=== PATIENT | male | born 1980 | race African-American/Black ===

== ENCOUNTER 2024-02-17 12:35 | Emergency (ER) | payer MEDICAID, SELFPAY ==
[2024-02-17 12:42] VITALS: BP 158/94; PULSE 79; TEMP 36.7; O2SAT 94; BMI 21.5
--- NOTE | 2024-02-17 12:48 | XR_ITS ---
The [address] [address] Patient Name: FIGUEROA TOBIN MRN: [id number] date: 1980 Sex: M Assigned Patient Location: ER Current Patient Location: ER Accession/Order Number: [id number] Exam Date: 02/17/2024 12:55 Report Date: 02/17/2024 13:41 At the request of: JULIO VASQUEZ Procedure: XR wrist RT min 3V PROCEDURE: XR wrist RT min 3V COMPARISON: None. HISTORY: Fall, pain FINDINGS: BONES:No fracture, acute abnormality, or significant arthropathy. SOFT TISSUES:Negative. No visible soft tissue swelling. EFFUSION:None visible. OTHER: Negative. XR/XR wrist RT min 3V IMPRESSION: No acute abnormality Electronically authenticated by: EUGENIA SANDOVAL Date: 02/17/2024 13:41
--- NOTE | 2024-02-17 12:49 | ED_ITS ---
HPI - Extremity Injury (Upper) General Chief Complaint: Extremity Injury, Upper Stated Complaint: UPPER EXTREMITY INJURY Time Seen by Provider: 02/17/24 12:41 Source: patient Mode of arrival: walk-in Limitations: no limitations History of Present Illness HPI narrative: 43-year-old male presents for right wrist pain. He has chronic foot drop and he tripped and he fell and he landed on his outstretched hand. He also sustained an abrasion on the left side of his face, below the eye. That does not hurt. No neck pain or loss of consciousness. No other injury sustained. The pain is moderate and it happened today. Related Data Allergies Allergy/AdvReac Type Severity Reaction Status Date / Time bee venom protein (honey bee) Allergy Severe Hives Verified 02/17/24 12:45 Review of Systems ROS Narrative A ten point review of systems is negative except as noted above. Exam Narrative Exam Narrative: Nurses note and vital signs reviewed and patient is not hypoxic. General: The patient appears well and in no apparent distress. Patient is resting comfortably on cart. Skin: Warm, dry, no pallor noted. There is no rash noted. Head: Normocephalic, small abrasion just below his left eye. No bony tenderness. Eye: Normal conjunctiva, no drainage, EOMI. PERRL Ears, Nose, Mouth, and Throat: oral mucosa is moist. Nares patent. Mouth without vesicles. Ear canals patent. Tm's without Erythema Cardiovascular: Regular Rate and Rhythm Respiratory: Patient is in no distress, no accessory muscle use, lungs are clear to auscultation, no wheezing, rales or rhonchi Back: non-tender GI: Soft and nontender Musculoskeletal: Tenderness and some swelling present on the dorsum of his right wrist. Skin intact. Fingers have good range of motion. Neurological: A&O, normal speech Psychiatric: Cooperative Constitutional Vital Signs, click to edit/add: Last Vital Signs Temp 98.1 F 02/17/24 12:42 Pulse 79 02/17/24 12:42 Resp 20 02/17/24 12:42 BP 158/94 H 02/17/24 12:42 Pulse Ox 94 L 02/17/24 12:42 O2 Del Method Room Air 02/17/24 12:42 Course Vital Signs Vital signs: Vital Signs Temperature 98.1 F 02/17/24 12:42 Pulse Rate 79 02/17/24 12:42 Respiratory Rate 20 02/17/24 12:42 Blood Pressure 158/94 H 02/17/24 12:42 Pulse Oximetry 94 L 02/17/24 12:42 Oxygen Delivery Method Room Air 02/17/24 12:42 Temperature 98.1 F 02/17/24 12:42 Pulse Rate 79 02/17/24 12:42 Respiratory Rate 20 02/17/24 12:42 Blood Pressure 158/94 H 02/17/24 12:42 Pulse Oximetry 94 L 02/17/24 12:42 Oxygen Delivery Method Room Air 02/17/24 12:42 MDM - Extremity Injury (Upper) MDM Narrative Medical decision making narrative: X-rays are negative per radiologist. My clinical impression is that he has a sprain. Wrist splint ordered. Application checked by me and found the appropriate time he is neurovascularly intact. Treatment diagnosis and follow- up were discussed with the patient. Differential Diagnosis Differential diagnosis: Likely sprain and strain of wrist and fracture of wrist Imaging Data Wrist x-ray: Radiologist's impression: ITS Impressions Wrist X-Ray 02/17/24 12:48 IMPRESSION: No acute abnormality Electronically authenticated by: EUGENIA SANDOVAL Date: 02/17/2024 13:41 Discharge Plan Discharge Stand Alone Forms: Portal Instructions Chief Complaint: Extremity Injury, Upper Clinical Impression: Right wrist sprain Patient Disposition: Home, Self-Care Time of Disposition Decision: 13:52 Condition: Good Mode of Transportation: Private Vehicle Print Language: Prydeinig Instructions: Wrist Sprain (ED) Referrals: YULI PITTMAN [Primary Care Provider] - 1 week
== END 2024-02-17 14:05 | disposition home or self-care (01) ==
PROVIDERS: Emergency Provider Emergency Medicine; PCP Physician Assistant Medical
DX: S63.501A Unspecified sprain of right wrist, initial encounter (principal); W01.0XXA Fall on same level from slipping, tripping and stumbling without subsequent striking against object, initial encounter; M21.379 Foot drop, unspecified foot
CPT/HCPCS: 73110; 99283

== ENCOUNTER 2024-04-10 16:48 | Emergency (ER) | payer MEDICAID, SELFPAY ==
[2024-04-10 17:08] VITALS: BP 115/90; PULSE 67; TEMP 37.1; O2SAT 100; BMI 20.8
--- NOTE | 2024-04-10 17:20 | CT_ITS ---
The [address] [address] Patient Name: FIGUEROA TOBIN MRN: [id number] date: 1980 Sex: M Assigned Patient Location: ER Current Patient Location: ED.MAIN Accession/Order Number: [id number] Exam Date: 04/10/2024 17:45 Report Date: 04/10/2024 18:53 At the request of: KELLY LAM Procedure: CT abdomen pelvis wo con CT ABDOMEN/PELVIS WITHOUT IV CONTRAST. INDICATION: Right flank pain COMPARISON: There are no other studies available for comparison. TECHNIQUE: Contiguous axial images were obtained from the lung bases to the pelvic floor without intravenous or oral contrast. Coronal and sagittal reformations are provided. FINDINGS: LOWER LUNGS: Clear. LIVER/BILIARY TREE: No discrete lesion. No intrahepatic ductal dilatation. GALLBLADDER: No significant gallbladder wall thickening. No radiopaque stone. CBD: Normal CBD. SPLEEN: Normal in size. PANCREAS: No appreciable peripancreatic fluid. No pancreatic ductal dilatation. No discrete lesion. ADRENALS: Normal. KIDNEYS: No hydronephrosis. No radiopaque calculus. STOMACH AND BOWEL: Stomach is unremarkable. No dilated bowel loops. No bowel wall thickening. APPENDIX: Visualized portions appear unremarkable. PERITONEAL CAVITY: No fluid. No fat stranding. ABDOMINAL WALL: No subcutaneous stranding. No subcutaneous fluid collection. LYMPH NODES: No mesenteric or retroperitoneal lymphadenopathy by CT criteria. ABDOMINAL AORTA: No aneurysm. PELVIS: No acute abnormality. MUSCULOSKELETAL: No acute osseous abnormality. CT/CT abdomen pelvis wo con IMPRESSION: No acute abnormality in the abdomen or pelvis. No obstructive uropathy. No nephrolithiasis. Electronically authenticated by: KAREN COURTNEY Date: 04/10/2024 18:53
[2024-04-10 17:45] LABS: Basophils Percent Auto 0.5 % (0.2-2.0); Eosinophils Absolute Auto 0.3 10^3/uL (0.0-0.7); Eosinophils Percent Auto 3.6 % (0.9-7.0); Hematocrit 45.7 % (42.0-54.0); Hemoglobin 14.7 g/dL (14.0-18.0); Immature Granulocytes Abs Auto 0.01 10^3/uL (0.00-0.03); Immature Granulocytes Pct Auto 0.1 % (0.0-0.5); Lymphocytes Percent Auto 45.4 % (20.5-60.0); Mean Corpuscular HGB Conc 32.2 g/dL (29.9-35.2); Mean Corpuscular Hemoglobin 25.7 pg (25.9-34.0); Mean Corpuscular Volume 79.9 fL (80.0-94.0); Mean Platelet Volume 10.5 fL (9.5-13.5); Monocytes Absolute Auto 0.7 10^3/uL (0.3-0.8); Monocytes Percent Auto 7.9 % (1.7-12.0); Neutrophils Absolute Auto 3.7 10^3/uL (1.4-6.5); Neutrophils Percent Auto 42.5 % (43.0-75.0); Platelet Count 204 10^3/uL (150-450); Red Blood Count 5.72 10^6/uL (4.70-6.10); Red Cell Distribution Width 14.9 % (11.0-15.0); White Blood Count 8.7 10^3/uL (4.0-11.0)
[2024-04-10 17:46] LABS: Bilirubin Urine NEGATIVE (NEGATIVE); Blood Urine NEGATIVE (NEGATIVE); Clarity Urine CLEAR (CLEAR); Color Urine YELLOW (YELLOW); Glucose Urine UA NEGATIVE (NEGATIVE); Ketones Urine NEGATIVE (NEGATIVE); Leukocyte Esterase Urine NEGATIVE (NEGATIVE); Nitrite Urine NEGATIVE (NEGATIVE); Protein Urine TRACE mg/dL (NEG/TRACE); Specific Gravity Urine >=1.030 (1.005-1.025); Urobilinogen Urine 0.2 EU/dL (0.2-1.0)
[2024-04-10 17:56] LABS: Urine Microscopic Indicated NO
[2024-04-10 18:06] LABS: Alanine Aminotransferase 22 U/L (16-63); Albumin Globulin Ratio 0.9; Albumin Level 3.1 g/dL (3.4-5.0); Alkaline Phosphatase 72 U/L (46-116); Anion Gap 12.3; Aspartate Amino Transferase 19 U/L (15-37); BUN Creatinine Ratio 9.2; Bilirubin Total 0.2 mg/dL (0.2-1.0); Calcium 8.6 mg/dL (8.5-10.1); Carbon Dioxide 27.7 mmol/L (21.0-32.0); Chloride 105 mmol/L (98-107); Estimated GFR (African America >60 (>=60); Estimated GFR (Non-African Ame >60 (>=60); Globulin 3.4 g/dL; Glucose 97 mg/dL (74-106); Sodium 141 mmol/L (136-145); Total Protein 6.5 g/dL (6.4-8.2)
[2024-04-10 18:09] LABS: Lactate/Lactic Acid 1.1 mmol/L (0.4-2.0)
[2024-04-10] MEDS: 0.9 % SODIUM CHLORIDE 1,000 ML 1000 ML IV (18:10)
--- NOTE | 2024-04-10 18:11 | ED.GENADUL1 ---
HPI HPI - General Adult General Chief complaint: Abdominal Pain Stated complaint: FLANK PAIN LEFT SIDE ARM PAIN Time Seen by Provider: 04/10/24 17:20 Source: patient Mode of arrival: walk-in History of Present Illness HPI narrative: Patient is a 43-year-old male who presents to the emergency department for right flank pain that began in the last several days. He states the pain is in the right flank, reproducible with movement and touch. He states at the time the pain began he did feel discomfort in the right leg. He has a history of MS with chronic right leg weakness and right foot drop that is not new or different today. He has not had any urinary symptoms. No fevers or vomiting. No medications taken prior to arrival today although he has been using [id number] medications for pain without improvement in the last several days. Related Data Previous Rx's ?Medication ?Instructions ?Recorded hydrocodone 5 mg-acetaminophen 325 1 tab PO Q6H PRN pain 2 days #8 04/10/24 mg tablet tabs ketorolac 10 mg tablet 10 mg PO TID PRN pain #10 tabs 04/10/24 methocarbamol 750 mg tablet 750 mg PO TID PRN pain #20 tabs 04/10/24 Allergies Allergy/AdvReac Type Severity Reaction Status Date / Time bee venom protein (honey bee) Allergy Severe Hives Verified 02/17/24 12:45 Opioid HPI Opioid Management Most Recent Opioid Data: Last ED Pain Assessment 04/10/24 18:21 Review of Systems ROS Constitutional Denies: fever or chills Ears, nose, mouth, and throat Denies: throat pain or nasal congestion Cardiovascular Denies: chest pain Respiratory Denies: shortness of breath or cough Gastrointestinal Denies: abdominal pain, nausea, vomiting or diarrhea Genitourinary Denies: painful urination Musculoskeletal Reports: back pain; Denies: neck pain or extremity pain Integumentary/Breast Denies: rash Neurological Denies: headache Hematologic/Lymphatic Denies: easy bruising or easy bleeding Exam Narrative Exam Narrative: Gen.: Awake, alert, in no distress Head: Normocephalic, atraumatic ENT: Moist mucous membranes Respiratory: No respiratory distress, lungs clear bilaterally Cardio: Regular rate and rhythm Gastrointestinal: Abdomen is soft, nondistended and nontender to palpation Back: Diffuse tenderness of the right flank and paraspinal muscles of the right lumbar spine with no midline posterior bony tenderness of the midline spine. No obvious deformity. Extremities: Weakness and right foot drop of the right lower extremity, chronic Psych: Normal mood and affect Neuro: No focal neuro deficit Skin: Warm, dry, intact Constitutional Vital Signs, click to edit/add: Last Vital Signs Temp 98.7 F 04/10/24 17:08 Pulse 67 04/10/24 17:08 Resp 20 04/10/24 17:08 BP 115/90 04/10/24 17:08 Pulse Ox 100 04/10/24 17:08 O2 Del Method Room Air 04/10/24 17:08 Course Vital Signs Vital signs: Vital Signs Temperature 98.7 F 04/10/24 17:08 Pulse Rate 67 04/10/24 17:08 Respiratory Rate 04/10/24 17:08 Blood Pressure 115/90 04/10/24 17:08 Pulse Oximetry 100 04/10/24 17:08 Oxygen Delivery Method Room Air 04/10/24 17:08 Temperature 98.7 F 04/10/24 17:08 Pulse Rate 67 04/10/24 17:08 Respiratory Rate 04/10/24 17:08 Blood Pressure 115/90 04/10/24 17:08 Pulse Oximetry 100 04/10/24 17:08 Oxygen Delivery Method Room Air 04/10/24 17:08 Medical Decision Making MDM Narrative Medical decision making narrative: Patient was treated with IV fluids, Dilaudid, Toradol, Norflex, Zofran. Lab studies including urine specimen are within normal limits. Patient's exam is consistent with musculoskeletal low back pain and CT scan shows no evidence of acute process. Patient is discharged home with short course of analgesics, muscle relaxants and NSAIDs. Follow-up with PCP and return to the ER if symptoms change or worsen. Medical Records Medical records reviewed: Yes I reviewed the patient's medical records Lab Data Lab results reviewed: Yes I reviewed the patient's lab results Labs: Lab Results 04/10/24 04/10/24 Range/Units 17:15 17:30 WBC 8.7 (4.0-11.0) 10^3/uL RBC 5.72 (4.70-6.10) 10^6/uL Hgb 14.7 (14.0-18.0) g/dL Hct 45.7 (42.0-54.0) % MCV 79.9 L (80.0-94.0) fL MCH 25.7 L (25.9-34.0) pg MCHC 32.2 (29.9-35.2) g/dL RDW 14.9 (11.0-15.0) % Plt Count 204 (150-450) 10^3/uL MPV 10.5 (9.5-13.5) fL Neut % (Auto) 42.5 L (43.0-75.0) % Lymph % (Auto) 45.4 (20.5-60.0) % [place] % (Auto) 7.9 (1.7-12.0) % Eos % (Auto) 3.6 (0.9-7.0) % Baso % (Auto) 0.5 (0.2-2.0) % Neut # (Auto) 3.7 (1.4-6.5) 10^3/uL Lymph # (Auto) 4.0 H (1.2-3.8) 10^3/uL [place] # (Auto) 0.7 (0.3-0.8) 10^3/uL Eos # (Auto) 0.3 (0.0-0.7) 10^3/uL Baso # (Auto) 0.0 (0.0-0.1) 10^3/uL Abs Immat Gran (auto) 0.01 (0.00-0.03) 10^3/uL Imm/Tot Granulo (auto) 0.1 (0.0-0.5) % Sodium 141 (136-145) mmol/L Potassium 4.0 (3.5-5.1) mmol/L Chloride 105 (98-107) mmol/L Carbon Dioxide 27.7 (21.0-32.0) mmol/L Anion Gap 12.3 BUN 11.0 (7.0-18.0) mg/dL Creatinine 1.19 (0.70-1.30) mg/dL Est GFR ( Amer) >60 (>=60) Est GFR (Non-Af Amer) >60 (>=60) BUN/Creatinine Ratio 9.2 Glucose 97 (74-106) mg/dL Lactate 1.1 (0.4-2.0) mmol/L Calcium 8.6 (8.5-10.1) mg/dL Total Bilirubin 0.2 (0.2-1.0) mg/dL AST 19 (15-37) U/L ALT 22 (16-63) U/L Alkaline Phosphatase 72 (46-116) U/L Total Protein 6.5 (6.4-8.2) g/dL Albumin 3.1 L (3.4-5.0) g/dL Globulin 3.4 g/dL Albumin/Globulin Ratio 0.9 Lipase 43.0 (16.0-77.0) U/L Urine Color Yellow (YELLOW) Urine Clarity Clear (CLEAR) Urine pH 6.0 (5.0-9.0) Ur Specific [place] >=1.030 A (1.005-1.025) Urine Protein Trace (NEG/TRACE) mg/dL Urine Glucose (UA) Negative (NEGATIVE) mg/dL Urine Ketones Negative (NEGATIVE) mg/dL Urine Occult Blood Negative (NEGATIVE) Urine Nitrite Negative (NEGATIVE) Urine Bilirubin Negative (NEGATIVE) Urine Urobilinogen 0.2 (0.2-1.0) EU/dL Ur Leukocyte Esterase Negative (NEGATIVE) Imaging Data CT scan - abdomen: Attestation: I have reviewed the pertinent imaging results. Radiologist's impression: ITS Impressions Abdomen/Pelvis CT 04/10/24 17:20 IMPRESSION: No acute abnormality in the abdomen or pelvis. No obstructive uropathy. No nephrolithiasis. Electronically authenticated by: KAREN COURTNEY Date: 04/10/2024 18:53 Discharge Plan Discharge Stand Alone Forms: Portal Instructions Chief Complaint: Abdominal Pain Clinical Impression: Low back pain Patient Disposition: Home, Self-Care Time of Disposition Decision: 18:57 Condition: Good Prescriptions / Home Meds: New hydrocodone-acetaminophen 5-325 mg tablet 1 tab PO Q6H PRN (Reason: pain) 2 Days Qty: 8 0RF Rx Instructions: DX: M54.5 ketorolac 10 mg tablet 10 mg PO TID PRN (Reason: pain) Qty: 10 0RF methocarbamol 750 mg tablet 750 mg PO TID PRN (Reason: pain) Qty: 20 0RF Print Language: Malaysian Instructions: Acute Low Back Pain (ED) Referrals: YULI PITTMAN [Primary Care Provider] - 1 week
[2024-04-10] MEDS: ORPHENADRINE 60 MG/ 2 ML VIAL IV (18:24)
[2024-04-10] MEDS: KETOROLAC TROMETHAMINE 30 MG/ML VIAL IVP (18:24)
[2024-04-10] MEDS: ONDANSETRON PF 4 MG/2 ML VIAL IV (18:24)
[2024-04-10] MEDS: HYDROMORPHONE HCL 1 MG/ML CARTRIDGE 0.5 MG IVP (18:25)
== END 2024-04-10 19:17 | disposition home or self-care (01) ==
PROVIDERS: Physician Assistant; Emergency Provider Emergency Medicine; PCP Physician Assistant Medical
DX: M54.50 Low back pain, unspecified (principal); G35 Multiple sclerosis; Z79.899 Other long term (current) drug therapy
CPT/HCPCS: 36415; 74176; 80053; 81003; 83605; 83690; 85025; 96374; 96375; 99285; J1170

== ENCOUNTER 2024-09-13 05:46 | Emergency (ER) | payer MEDICAID, SELFPAY ==
[2024-09-13] VITALS (26 sets, daily range): BP systolic 120–170; BP diastolic 92–110; PULSE 62; TEMP 36.6; O2SAT 78–100; BMI 21.5
[2024-09-13] MEDS: CLINDAMYCIN PHOSPHATE/D5W 900 MG/50 ML PREMIX 100 MG IV (06:16)
--- NOTE | 2024-09-13 06:16 | ED.DENTAL1 ---
HPI - Dental/Oral General Chief complaint: Dental/Oral Stated complaint: face swelling eleno apt 03/13 Time Seen by Provider: 09/13/24 06:00 Source: patient Mode of arrival: walk-in Limitations: no limitations History of Present Illness HPI Narrative: 43-year-old male presents for facial swelling. Yesterday in [place] he had an oral surgery procedure, a biopsy of what appears to be gingival tissue. He states last night on the way home it became quite swollen. No difficulty breathing or swallowing. No fever. Symptom has been continuous. Related Data Previous Rx's ?Medication ?Instructions ?Recorded hydrocodone 5 mg-acetaminophen 325 1 tab PO Q6H PRN pain 2 days #8 04/10/24 mg tablet tabs ketorolac 10 mg tablet 10 mg PO TID PRN pain #10 tabs 04/10/24 methocarbamol 750 mg tablet 750 mg PO TID PRN pain #20 tabs 04/10/24 Allergies Allergy/AdvReac Type Severity Reaction Status Date / Time bee venom protein (honey bee) Allergy Severe Hives Verified 02/17/24 12:45 Review of Systems ROS Narrative A ten point review of systems is negative except as noted above. PFSH PFS Social History Little interest or pleasure in doing things: not at all Feeling down, depressed, or hopeless: not at all Exam Narrative Exam Narrative: Nurses note and vital signs reviewed and patient is not hypoxic. General: The patient appears in no acute respiratory distress Skin: Warm, dry, no pallor noted. There is no rash noted. Head: Normocephalic, atraumatic Eye: Normal conjunctiva, no drainage Ears, Nose, Mouth, and Throat: oral mucosa is moist. Nares patent. He has significant swelling of the upper lip area particular on the right side and it goes into the malar area. No swelling to the floor of his mouth. He is handling his oral secretions well. No active bleeding present. There is some gingival swelling as well. Cardiovascular: Regular Rate and Rhythm Respiratory: Patient is in no distress, no accessory muscle use, lungs are clear to auscultation, no wheezing, rales or rhonchi Back: non-tender GI: Soft and nontender Musculoskeletal: The patient has no evidence of calf tenderness, no pitting edema, symmetrical pulses noted bilaterally Neurological: A&O Psychiatric: Cooperative Constitutional Vital Signs, click to edit/add: Last Vital Signs Temp 97.9 F 09/13/24 05:59 Pulse 62 09/13/24 05:59 Resp 19 09/13/24 05:59 BP 168/103 H 09/13/24 05:59 Pulse Ox 100 09/13/24 05:59 O2 Del Method Room Air 09/13/24 05:59 Course Vital Signs Vital signs: Vital Signs Temperature 97.9 F 09/13/24 05:59 Pulse Rate 62 09/13/24 05:59 Respiratory Rate 19 09/13/24 05:59 Blood Pressure 168/103 H 09/13/24 05:59 Pulse Oximetry 100 09/13/24 05:59 Oxygen Delivery Method Room Air 09/13/24 05:59 Temperature 97.9 F 09/13/24 05:59 Pulse Rate 62 09/13/24 05:59 Respiratory Rate 19 09/13/24 05:59 Blood Pressure 168/103 H 09/13/24 05:59 Pulse Oximetry 100 09/13/24 05:59 Oxygen Delivery Method Room Air 09/13/24 05:59 MDM - Dental/Oral MDM Narrative Medical decision making narrative: Tests are ordered including CAT scan and the patient is signed out to Dr. Fuentes at change of shift. Differential Diagnosis Differential diagnosis: Likely other (Hematoma, abscess) Discharge Plan Discharge Chief Complaint: Dental/Oral Clinical Impression: Facial swelling Patient Disposition: Still a Patient Prescriptions / Home Meds: No Action hydrocodone-acetaminophen 5-325 mg tablet 1 tab PO Q6H PRN (Reason: pain) 2 Days Qty: 8 0RF Rx Instructions: DX: M54.5 ketorolac 10 mg tablet 10 mg PO TID PRN (Reason: pain) Qty: 10 0RF methocarbamol 750 mg tablet 750 mg PO TID PRN (Reason: pain) Qty: 20 0RF Print Language: Spanish Referrals: YULI PITTMAN [Primary Care Provider] - 1 week
[2024-09-13 06:48] LABS: Basophils Percent Auto 0.2 % (0.2-2.0); Eosinophils Absolute Auto 0.1 10^3/uL (0.0-0.7); Eosinophils Percent Auto 0.9 % (0.9-7.0); Hematocrit 51.9 % (42.0-54.0); Hemoglobin 16.7 g/dL (14.0-18.0); Immature Granulocytes Abs Auto 0.04 10^3/uL (0.00-0.03); Immature Granulocytes Pct Auto 0.2 % (0.0-0.5); Lymphocytes Absolute Auto 2.5 10^3/uL (1.2-3.8); Lymphocytes Percent Auto 15.8 % (20.5-60.0); Mean Corpuscular HGB Conc 32.2 g/dL (29.9-35.2); Mean Corpuscular Hemoglobin 25.7 pg (25.9-34.0); Mean Platelet Volume 11.9 fL (9.5-13.5); Monocytes Absolute Auto 1.3 10^3/uL (0.3-0.8); Monocytes Percent Auto 8.2 % (1.7-12.0); Neutrophils Percent Auto 74.7 % (43.0-75.0); Platelet Count 188 10^3/uL (150-450); Red Blood Count 6.49 10^6/uL (4.70-6.10); Red Cell Distribution Width 15.9 % (11.0-15.0); White Blood Count 16.1 10^3/uL (4.0-11.0)
[2024-09-13 06:49] LABS: Anion Gap 15.2; BUN Creatinine Ratio 11.8; Calcium 9.5 mg/dL (8.5-10.1); Carbon Dioxide 26.7 mmol/L (21.0-32.0); Chloride 103 mmol/L (98-107); Estimated GFR (African America >60 (>=60 mL/min/1.73m^2); Estimated GFR (Non-African Ame 50 (>=60 mL/min/1.73m^2); Glucose 98 mg/dL (74-106); Potassium 3.9 mmol/L (3.5-5.1); Sodium 141 mmol/L (136-145)
--- NOTE | 2024-09-13 07:11 | CT_ITS ---
The [address] [address] Patient Name: FIGUEROA TOBIN MRN: [id number] date: 1980 Sex: M Assigned Patient Location: ER Current Patient Location: ER Accession/Order Number: [id number] Exam Date: 09/13/2024 07:00 Report Date: 09/13/2024 07:47 At the request of: JULIO VASQUEZ Procedure: CT facial bones w con EXAMINATION: CT facial bones w con HISTORY: Swelling post dental procedure ; right side facial swelling for one day COMPARISON: No relevant comparison available. TECHNIQUE: Axial, Coronal, and Sagittal CT images created with IV contrast. Dose reduction techniques were achieved by using automated exposure control and/or adjustment of mA and/or kV according to patient size and/or use of iterative reconstruction technique. FINDINGS: FACIAL BONES: Expansile cavity within the anterior aspect of the hard palate 3.1 x 2.7 x 2.5 cm in diameter partially filled with air and dense fluid in, and possibly soft tissue. Marked thinning of the cortex with numerous areas of complete cortical destruction through the floor of the hard palate and through the anterior wall with air from the cavity extending into the soft tissue of the upper lip where there is marked swelling. Prominent subcutaneous edema versus inflammatory changes involving the upper lip and cheeks. Bone lucency surrounding the root(s) of the posterior most remaining molar on the right and left within the maxilla and mandible. SINUSES: Mild chronic sinusitis involving the maxillary sinuses. No developed frontal sinuses. NASAL FOSSA: No mass, fracture, or significant septal deviation. SKULL BASE: No mass or bone destruction. ORBITS: No visible mass, hematoma, edema or fracture. SALIVARY GLANDS: No mass. Unremarkable parotid and submandibular glands. OTHER: No lymphadenopathy. Unremarkable nasopharynx, oropharynx, and oral cavity. CT/CT facial bones w con IMPRESSION: 1. Large cavitary lesion within anterior hard palate which is expanded the bone, cause marked thinning, and has opened into the upper lip/anterior soft tissues suspected represent abscess. 2. Dental caries involving the most posterior remaining molars of the mandible and maxilla. Electronically authenticated by: GENNARO EATON Date: 09/13/2024 07:47
--- NOTE | 2024-09-13 08:19 | PC.NURSE ---
CALLED FIGUEROA CARDOSO ABOUT POSSIBLE TRANSFER. AWAITING ORAL MAXILLOFACIAL PHYSICIAN TO CALL US.
[2024-09-13] MEDS: KETOROLAC TROMETHAMINE 30 MG/ML VIAL IVP (08:25)
[2024-09-13] MEDS: DEXAMETHASONE SOD PHOS 10 MG/ML VIAL IV (08:25)
[2024-09-13 08:31] LABS: Lactate/Lactic Acid 1.7 mmol/L (0.4-2.0)
--- OUTSIDE RECORDS SUMMARY | 2024-09-13 08:50 | XMS_ITS | CCD ---
Author Organization [facility] Inform ion Partnership [facility] Care Team Providers Care Correctional Officer Sergeant Name Role Phone Ashutosh Varela Admitting Unavailable Ashutosh Varela Attending Unavailable CAROLYN STARKS Referring Unavail able CAROLYN STARKS Primary Care Unavail [facility], Services Primary Care Provider MD Vivek Prince Jr Emergency Provider LULU HAGER Referring Unavailable Allergies Allergy Classification Reported Allergen(s) Allergy Type Date of Onset Reaction(s) Facility (1 source) Bee/Wasp/Ant venom; Translations: [Bee Stings] Propensity to adverse reactions (disorder) [facility] Repository (1 source) bee venom protein (honey bee) Allergy to substance Anaphylaxis [facility] (1 source) ALLERGIES NOT ON FILE; Translations: [ALLERGIES NOT ON FILE] Propensity to adverse reactions (disorder) [facility] Repository Medications Current Medications Medication Drug Class(es) Dates Sig (Normalized) Sig (Original) acetaminophen 325 mg / oxyCODONE hydrochloride 5 mg oral tablet (1 source) Opioid Agonist Start: 06-23-2022 take 1 tablet by mouth every six hours Oxycodone-Acetami nophen (Percocet) 5-325 mg tablet Active 1 TAB PO Q6H 10 June 23, 2022 Start: 06-23-2022 take 1 tablet by ro th every six hours Oxycodone-Acetaminophen (Percocet) 5-325 mg tablet Active 1 TAB PO Q6H 10 June 23, 2022 ibuprofen 600 mg oral tablet (5 sources) Nonsteroidal Anti-inflammatory Drug Start: 06-23-2022 take 600 mg by mouth every eight hours Ibuprofen Active 600 MG PO Q8H June 23, 2022 12:00am Start: 09-08-2018 End: 08-27-2019 take 600 mg by mouth every eight hours Ibuprofen Discontinued 600 MG PO Q8H September 08, 2018 12:00am August 27, 2019 2:52pm Start: 07-17-2018 End: 08-13-2018 take 800 mg by mouth three times daily Ibuprofen Discontinued 800 MG PO Three times daily July 17, 2018 12:00am August 13, 2018 9:04pm Start: 11-24-2017 End: 07-17-2018 Ibuprofen Discontinued 600 M G PO every 6 to 8 hours November 24, 2017 1:00am July 17, 2018 8:57pm Start: 11-02-2017 End: 11-24-2017 take 800 mg by mouth three times daily Ibuprofen Discontinued 800 MG PO Three times daily November 02, 2017 1:00am November 24, 2017 8:21pm Completed/Discontinued Medications Medication Drug Class(es) Dates Sig (Normalized) Sig (Original) acetaminophen 500 mg oral tablet (1 source) Start: 09-08-2018 End: 08-27-2019 take 1 tablet by mouth every six hours Acetaminophen (Tylenol Extra Strength) 500 mg tablet Discontinued 500 MG PO Q6H September 08, 2018 12:00am August 27, 2019 2:52pm acetaminophen 325 mg / HYDROcodone bitartrate 5 mg oral tablet (1 source) Opioid Agonist Start: 11-26-2017 End: 11-29-2017 Hydrocodone-Acetam inophen ([place]way) 5-325 mg tablet Discontinued 1 TAB PO every 6 to 8 hours 10 24November 26, 2017 November 29, 2017 1:02am amoxicillin 875 mg / clavulanate 125 mg oral tablet (2 sources) Penicillin-class Antibacterial Start: 11-26-2017 End: 07-17-2018 take 1 tablet by mouth twice daily Amoxicillin-Pot Clavulanate (Augmentin) 875-125 mg tablet Discontinued 1 TAB PO Twice daily November 26, 2017 10:15pm July 17, 2018 8:57pm Start: 11-02-2017 End: 11-24-2017 take 1 tablet by mouth twice daily Amoxicillin-Pot Clavulanate (Augmentin) 875-125 mg tablet Discontinued 1 TAB PO Twice daily 10 09November 02, 2017 1:00am November 24, 2017 8:21pm cephalexin 500 mg oral capsule (1 source) Cephalosporin Antibacterial Start: 10-04-2021 End: 06-23-2022 take 500 mg by mouth four times daily Cephalexin Discontinued 500 MG PO Four times daily October 04, 2021 1:00am June 23, 2022 1:29am diazePAM 5 mg oral tablet (1 source) Benzodiazepine Start: 08-27-2019 End: 05-20-2021 Diazepam (Valium) 5 mg tablet Discontinued 5 MG PO .prn August 27, 2019 12:00am May 20, 2021 11:23pm gabapentin 600 mg oral tablet (1 source) Anti-epileptic Agent Start: 09-08-2018 End: 08-27-2019 take 600 mg by mouth three times daily Gabapentin Discontinued 600 MG PO Three times daily September 08, 2018 12:00am August 27, 2019 2:52pm naproxen 500 mg oral tablet (1 source) Nonsteroidal Anti-inflammatory Drug Start: 08-13-2018 End: 09-08-2018 take 1 tablet by mouth twice daily Naproxen (Naprosyn) 500 mg tablet Discontinued 500 MG PO Twice daily August 13, 2018 12:00am September 08, 2018 6:24pm penicillin v potassium 500 mg oral tablet (1 source) Start: 09-08-2018 End: 09-18-2018 take 1000 mg by mouth twice daily Penicillin V Potassium Discontinued 1000 MG PO Twice daily 40 September 08, 2018 12:00am September 18, 2018 12:01am Problems Problem Classification Problem Date Documented Date Episodic/Chronic Chronic obstructive pulmonary disease and bronchiectasis (1 source) Bronchitis; Translations: [Bronchitis, not specified as acute or chronic] 11-02-2017 Episodic Disorders of teeth and jaw (4 sources) Toothache; Translations: [Other specified disorders of teeth and supporting structures] Onset: 08-21-2024 11-02-2017 Episodic E Codes: Fall (1 source) Fall on same level from slipping, tripping or stumbling ; Translations: [Fall on same level from slipping, tripping and stumbling without subsequent striking against object, initial encounter] 06-23-2022 Episodic Headache; including migraine (1 source) Headache; Translations: [Headache] 08-27-2019 Episodic Open wounds of head; neck; and trunk (1 source) Laceration - injury; Translations: [Laceration] 10-04-2021 Episodic Other aftercare (1 source) Surgical follow-up; Translations: [Encounter for removal of sutures] 10-15-2021 Episodic Other connective tissue disease (1 source) Muscle pain; Translations: [Myalgia, unspecified site] 08-27-2019 Episodic Other connective tissue disease (1 source) H/O: musculoskeletal disease; Translations: [Personal history of other diseases of the musculoskeletal system and connective tissue] 06-23-2022 Episodic Sprains and strains (2 sources) Strain of other muscle(s) and tendon(s) of posterior muscle group at lower leg level, right leg, initial encounter; Translations: [Strain of right gastrocnemius muscle] 06-23-2022 Episodic Superficial injury; contusion (3 sources) Corneal abrasion; Translations: [Injury of conjunctiva and corneal abrasion without foreign body, unspecified eye, initial encounter] 05-20-2021 Episodic Results Test Name Value Interpretation Reference Range Facil ity CT FACIAL BONES WO IV CONTRA STon 08-21-2024 CT FACIAL BONES WO IV CONTRAST Interpreted By: Evita Garcia, STUDY: CT FACIAL BONES WO IV CONTRAST 08/21/2024 8:31 am INDICATION: Signs/Symptoms:Anteri or maxilla lesion ,M27.40 Unspecified cyst of jaw COMPARISON: None. ACCESSION NUMBER(S): [id number] ORDERING CLINICIAN: LULU HAGER TECHNIQUE: Thin cut axial CT images through the facial bones were obtained and reconstructed in the coronal and sagittal plane. FINDINGS: Orbits: The bony orbits are intact. The orbital contents are unremarkable. Facial Bones: There is no displaced facial bone fracture. Mandible/Temporomandi bular Joints: There is odontogenic disease with numerous periapical lucencies and dental caries. There is a large expansile lesion within the anterior mandible on the right measuring 2.6 x 2.6 x 2.9 cm transverse by cc which appears to surround the roots of the bilateral central incisors and right lateral incisor. There is marked osseous thinning/osseous dehiscence along the anterior and posterior margins of the lesion. There appears to be an extraosseous soft tissue component extending into the soft tissues anterior to the mandible. Paranasal Sinuses/Mastoids: Visualized paranasal sinuses and mastoids are predominantly clear. Soft tissues: Unremarkable. IMPRESSION: There is a large expansile lesion within the anterior mandible on the right with marked osseous thinning/osseous dehiscence along the anterior and posterior margins of the lesion. There appears to be an extraosseous soft tissue component extending into the soft tissues anterior to the mandible. Findings may represent an odontogenic lesion versus an osseous lesion. Consider tissue sampling to further evaluate. Odontogenic disease with multiple periapical lucencies and dental caries. MACRO: None Signed by: Evita Garcia 08/21/2024 11:40 AM Dictation workstation: [id number] [facility] XR hip RT min 2V(w/wo pelvis )*on 06-23-2022 XR hip RT min 2V(w/wo pelvis)* [facility] Main [place] [address] [place] [address] XRay Report Signed Patient: Reynaldo Tobin MR#: [id number] : 1980 Acct:[id number] Age/Sex: 41 / M ADM Date: 06/23/22 Loc: ER Room: Type: [facility] ER Attending Dr: Copies to: Vivek Prince Jr, MD Ordering Provider: Vivek Prince Jr, MD Date of Service: 06/23/22 XR/XR knee RT 4V*: Extremity Injury, Lower ([id number]) XR/XR hip RT min 2V(w/wo pelvis)*: Extremity Injury, Lower 4 views RIGHT knee plain film COMPARISON:None HISTORY:Fell. RIGHT knee pain. Unable to ventilate. mild prepatellar soft tissue prominence. No joint effusion identified. No fracture or dislocation. XR/XR knee RT 4V* IMPRESSION:Mild prepatellar soft tissue prominence. No fracture. 2 views RIGHT hip single view pelvis No fracture or dislocation. No significant degeneration. Soft tissues unremarkable. IMPRESSION: No acute findings. Impression dictated by: Richard Cui M.D.06/23/2022 8:20 AM Dictation Location: [place] [address] Transcribed By: [facility] 06/23/22819 Dictated By: Richard Cui DO 06/23/22818 Signed By: 06/23/22819 [facility] COVID-19 Lab Corpon 02-09-20 SARS-CoV-2 (COVID-19) RNA VARINDER+probe Ql (Unsp spec) Not detected Normal Not Detected [facility] Comment on above: Order Comment: Healt hcare Worker?: N Result Comment: This nucleic acid amplification test was developed and its performance characteristics determined by [employer]. Nucleic acid amplification tests include RT- PCR and TMA. This test has not been FDA cleared or approved. This test has been authorized by FDA under an Emergency Use Authorization (EUA). This test is only authorized for the duration of time the declaration that circumstances exist justifying the authorization of the emergency use of in vitro diagnostic tests for detection of SARS-CoV-2 virus and/or diagnosis of COVID-19 infection under section 564(b)(1) of the Act, 21 U.S.C. 360bbb-3(b) (1), unless the authorization is terminated or revoked sooner. When diagnostic testing is negative, the possibility of a false negative result should be considered in the context of a patient's recent exposures and the presence of clinical signs and symptoms consistent with COVID-19. An individual without symptoms of COVID-19 and who is not shedding SARS-CoV-2 virus would expect to have a negative (not detected) result in this assay. PERFORMED BY: [place] [address] PATHOLOGIST HAND WASHER AILYN MAYNARD M.D. Performed By: #### C ORONAVIRUS #### [facility] , XR elbow LT min 3V*on 2020 XR elbow LT min 3V* [facility] [place] [address] XRay Report Signed Patient: Reynaldo Tobin MR#: [id number] : 1980 Acct:[id number] Age/Sex: 40 / M ADM Date: 10/04/21 Loc: ER Room: Type: [facility] ER Attending Dr: Ordering Provider: Silvio Rogers APRN Date of Service: 10/04/21 XR/XR elbow LT min 3V*: Skin/Abscess/Foreign Body Copies to: Silvio Rogers APRN 4 views ofLEFT elbow plain film COMPARISON:None HISTORY:Fell through window last night. LEFT elbow laceration. No fracture, dislocation or joint effusion is present. Posterior soft tissue prominence present. XR/XR elbow LT min 3V* IMPRESSION: No acute findings. Impression dictated by: Richard Cui M.D.10/04/2021 12:10 PM Dictation Location: [place] [address] Transcribed By: [facility] 10/04/21 1210 Dictated By: Richard Cui DO 10/04/21 1209 Signed By: 10/04/21 1210 [facility] DGIT - General Officeon 0 12-06-2018 DGIT - General Office From: Shayna Herrera To: [facility] Pain Patients Needing Appointment; Sent: 09/13/2018 13:27:59 EDT Subject: Avery NOMS due back 11/13/18 Due Date/Time: 11/13/2018 13:27:00 EST Call patient to schedule 2 month follow up appointment due on 11/13/18 NOMS. From: Shayna Herrera ([facility] Pain Patients Needing Appointment) To: [facility] Pain Patients Needing Appointment; Sent: 12/06/2018 12:12:39 EST Subject: Avery NOMS due back 11/13/18 Tried calling patient no working phone number. [facility] Coding Summary.on 09-20-2018 Coding Summary. CODING DATE: 09/20/2018 FINAL [facility] STATUS: Home (Routine DC) PAYOR: Medicaid EAPG DESCRIPTION 0663 PAIN ADMIT DX: REASON FOR VISIT DX: M79.604 Pain in right leg M79.605 Pain in left leg M79.601 Pain in right arm FINAL DX: PRINCIPAL: G89.29 Other chronic pain SECONDARY: M79.604 Pain in right leg M79.605 Pain in left leg M79.601 Pain in right arm G37.3 Acute transverse myelitis in demyelinating disease of central nervous system M21.371 Foot drop, right foot Z79.899 Other fpc (current) drug therapy PYMT PROC EAPG STAT DESCRIPTION DOCTOR NAME DATE NOTE: The code number assigned matches the documented diagnosis and / or procedure in the patient's chart. However, the narrative phrase printed from the coding software may appear abbreviated, or result in slightly different terminology. Coded By: Earline Cain Date Saved: 09/20/2018 07:03 am Normal [facility] Consultation Noteon 10-29-20 18 Consultation Note HOSPITAL REGULATIONS : ALL Positive Important Negative Findings Shall Be Recorded. Date of 09/13/2018 Consultation: Attending Physician: Consulting Ashutosh Varela M.D. Physician: CHIEF COMPLAINT: Bilateral leg pain and right arm pain. HISTORY: This is a 37 year old gentleman who was involved in a fall from a tree several years ago and suffered a neck injury. He states he did not have surgery at that time but was diagnosed with transverse myelitis. He has developed over the years severe pain in bilateral lower extremities past the knees and right arm pain. He has been treated in numerous states including [place] and [place]. He recently moved back to this area and is in the process of getting set up for care. Treatments have included gabapentin which takes a slight edge off the pain and numerous other pain medications which were of mild benefit. He does of note, have pending neurology appointment for next month but in the meanwhile was referred here to establish care. The pain in the right arm is rated as a 7/10 on the visual analog scale and bilateral lower extremities at 9/10. He does have a chronic right foot drop which has been present for many years. The patient states that he has had extensive evaluations including magnetic resonance imagings, electromyograms, all of which he is unsure of the results. He does not bring with him any records of those studies but does have numerous pages of records that do not pertain to those studies. He notes no noticeable side effects from the gabapentin and Robaxin he is currently taking. He notes the quality of life and activities of daily living are significantly impacted by his pain. Past medical history, family history, surgical history, social history, medication list, allergies and complete review of systems were obtained and reviewed. Pertinent findings are noted in the history of present illness. PHYSICAL EXAMINATION: Constitutional: No acute distress, well nourished, well developed. Eyes: No exudate or deformity. Extraocular muscles are intact. Ears, nose, mouth and throat: Ears and nose are without deformity. Normal appearing tongue and teeth. Neck: No noticeable masses, tracheal deviation or asymmetry. No thyromegaly on inspection. Respiratory: No gasping or shortness of breath. No accessory muscle use. Cardiovascular: Pulses in extremities are palpable. No noticeable lower extremity edema or varicosities. Gastrointestinal: No distention. No pain with palpation. Lymphatics: No supraclavicular or cervical lymphadenopathy. Skin: Inspection of the skin reveals no rashes, lesions or ulcers. Normal skin turgor. Psychiatric: Oriented to time, place and person. Normal mood and affect. Musculoskeletal: Patient arises slowly from a setaed position. There is diffuse tenderness in nondermatomal distribution past the knees bilaterally. There is a right foot drop on neurologic testing. He ambulates with a limp. There is pain with range of motion of the right hip and right elbow. No gross deformity or asymmetry noted. Neurologic: Right foot drop. Negative straight leg raise bilaterally. No other focal neurologic deficits noted. IMAGING STUDIES: I was able to review reports of x-ray of the right hip, cervical spine. The cervical spine demonstrates moderate degenerative changes throughout the cervical spine most predominately at C5-6. Right hip x-ray demonstrates mild early osteophytic changes of the right hip. Computerized tomography of the brain from 08/23/18 demonstrates no acute intracranial findings. X-ray of the right elbow no fracture, no joint effusion, no dislocation, no soft tissue swelling. ASSESSMENT/PLAN: A 37 year old gentleman with clear neuropathic pain that is chronic and severe, history of transverse myelitis. I encouraged the patient to follow through with his Neurology evaluation. I encouraged him also to obtain his previous records from outside facilities including his numerous electromyogram studies and magnetic resonance imagings so that all that workup would not have to be repeated. I suggested increasing the gabapentin to 800 mg three times per day. The patient wishes to give it a try. Possible side effects were reviewed. [place] Automated Prescription Reporting System was reviewed and is appropriate. The patient will follow up in two months, sooner if necessary and was invited to call the clinic with any questions or concerns. Prescription for gabapentin with one additional refill was provided to the patient's pharmacy electronically. Ashutosh Varela M.D. wendy Dictated: 09/13/2018 #[id number] Typed: 09/15/2018 #[id number] cc: Ashutosh Varela M.D. *Carolyn Starks, HEALTH INSPECTOR FOOD Normal [facility] Comment on above: Result Comment: Elec tronically Signed By: Avery TATUM, Ashutosh Tate\.br\Date and Time Signed: 09/19/18 09:45 EDT Vital Signs Date Time Vital Sign Value Performing Clinician Chris rodriguez 06-23-2022 03:10-0400 Diastolic blood pressure 69 mm[Hg] Services [employer] Work Phone: [facility] 06-23-2022 03:10-0400 Heart rate 68 /min Services [employer] [facility] Work Phone: [facility] 06-23-2022 03:10-0400 Respiratory rate 18 /min Services [facility] [employer] Work Phone: [facility] 06-23-2022 03:10-0400 SaO2% (BldA) [Mass fraction] 99 % Services [employer] Work Phone: [facility] 06-23-2022 03:10-0400 Systolic blood pressure 113 mm[Hg] Services [employer] Work Phone: [facility] 06-23-2022 01:23-0400 Body height 177.8 cm Services [employer] Work Phone: [facility] 06-23-2022 01:23-0400 Body temperature 98.1 [degF] Services [employer] Work Phone: [facility] 06-23-2022 01:23-0400 Body weight 63.5 kg Services [employer] Work Phone: [facility] Encounters Encounter Date Encounter Type Care Provider Facility Start: 08-21-2024 End: 08-21-2024 ambulatory [facility] Start: 06-23-2022 End: 06-23-2022 Emergency department patient visit Services [employer] Phone: [facility] Start: 09-13-2018 End: 09-14-2018 Patient encounter procedure Ashutosh Varela Facility:[facility] Procedures Date Procedure Procedure Detail Performing Clinician Start: 06-23-2022 Plain X-ray of right hip Services [facility] Work Phone: Start: 06-23-2022 X-ray of right knee Ser vices [facility] Work Phone: Plan of Treatment Date Care Activity Detail Author Patient Education Hip Pointer Mi nor Contusion ED Leg Muscle Strain ED [facility] Work Phone: Patient referral [facility] Work Phone: Payers Date Payer Category Payer Unknown [id number] 1980 Unknown [id number] 1980 Unknown [id number] Self-pay Self Pay [id number] Unknown Insurance No Card [id number] Social History Date Type Detail Facility Start: [facility]2022 [facility] Start: 1980 Sex Assigned At Male F [facility] Evaluation note Note Date & Type Note Facility Evaluation note No assessment information availa ble [facility] Work Phone: Hospital Discharge instructions Note Date & Type Note Facility Hospital Discharge instructions Additional Instructions Be sure to follow up with [facility]. They can help you obtain a foot drop brace so you can avoid further falls due to this. You should also follow up with neurology about your chronic issues. [facility] Work Phone: Summary Purpose Family History No Family History Records FoundNo Family History Records FoundNo Family History Records Found Advance Directives No Advanced Directives Records Found Advance Directive Response Recorded Date/ Time Advance Directives No October 8:49am Chief Complaint and Reason for Visit Chief Complaint R leg injury Additional Source Comments (unrecognized sect ion and content) No Status Records FoundNo Status Records FoundNo Status Records Found INFORMATION SOURCE (unrecogn ized section and content) DATE CREATED AUTHOR 12/11/2018 Derrek Michael [facility] DATE CREATED AUTHOR AUTHOR'S ORGANIZ ATION 07/06/2022 [facility] DATE CREATED AUTHOR AUTHOR'S ORGANIZ ATION 08/25/2024 [facility] Care Teams (unrecognized sec tion and content) Team Status: Inactive Member Role Status Dates Services [facility] Primary Care Provider Active Vivek Prince Jr, MD Emergency Provider Active Team Status: Active Member Role Status Dates Services [facility] Primary Care Provider Active Goals (unrecognized section and content) Goals may be documented in a n alternate section FOR RECORDS PERTAINING TO PATIENTS WHO ARE OR HAVE BEEN ENROLLED IN A CHEMICAL DEPENDENCY/SUBSTANCEABUSE PROGRAM, SOME INFORMATION MAY BE OMITTED. This clinical summary was aggregated from multiple sources. Caution should be exercised in using it in the provision of clinical care. This summary normalizes information from multiple sources, and as a consequence, information in this document may materially change the coding, format and clinical context of patient data. In addition, data may be omitted in some cases. CLINICAL DECISIONS SHOULD BE BASED ON THE PRIMARY CLINICAL RECORDS. [employer] provides no warranty or guarantee of the accuracy or completeness of information in this document.
[2024-09-13] MEDS: 0.9 % SODIUM CHLORIDE 500 ML IV (09:17)
== END 2024-09-13 10:35 | disposition home or self-care (01) ==
PROVIDERS: Emergency Medicine; Emergency Provider Emergency Medicine; PCP Physician Assistant Medical
DX: R22.0 Localized swelling, mass and lump, head (principal)
CPT/HCPCS: 36415; 70487; 80048; 83605; 85025; 87040; 96365; 96375; 99285; J0736; J1100; J1885; Q9966